=== PATIENT | female | born 1940 | race Caucasian/White ===

== ENCOUNTER 2018-07-20 10:19 | Day surgery (SDC) | payer MEDICARE, BC ==
[~2018-07-20 10:19] MED LIST: LIDOCAINE HCL 1% MPF 30 SOL ONE; PROPOFOL 500 MG/50 ML EMU IV ONE
[2018-07-20 12:18] VITALS: BP 136/66; PULSE 60; RESP 20; TEMP 98.7; O2SAT 97
== END 2018-07-20 12:40 | disposition home or self-care (01) | DRG 951 ==
LOC: SURG 10:19
PROVIDERS: ATTEND Surgery
DX: Z12.11 Encounter for screening for malignant neoplasm of colon (principal); K57.32 Diverticulitis of large intestine without perforation or abscess without bleeding; Z86.010 Personal history of colon polyps; D12.2 Benign neoplasm of ascending colon
CPT/HCPCS: J2001; J2704